=== PATIENT | female | born 1955 | race Caucasian/White ===

== ENCOUNTER 2017-11-05 15:21 | Observation (INO) | payer OTHER ==
[~2017-11-05] VITALS: Ht 160 cm; Wt 72.7 kg
[2017-11-05] MEDS ORDERED: ASPIRIN 81 MG CHEW TAB PO ONE ×2 (15:45→20:00)
[2017-11-05 16:39] LABS: BASOPHILS # (AUTO) 0.1 (0.0-0.1); BASOPHILS % 0.8 % (0.0-1.0); EOSINOPHILS # (AUTO) 0.2 (0.0-0.4); EOSINOPHILS % 2.6 % (0.0-6.0); HEMATOCRIT 43.1 % (34.2-44.1); HEMOGLOBIN 14.2 g/dL (12.0-16.0); LYMPHOCYTES # (AUTO) 2.6 (1.0-3.2); LYMPHOCYTES % 36.4 % (18.0-39.1); MEAN CORPUSCULAR HEMOGLOBIN 30.6 pg (28-32); MEAN CORPUSCULAR HGB CONC 32.9 g/dL (31-35); MEAN CORPUSCULAR VOLUME 92.9 fL (81-99); MONOCYTES # (AUTO) 0.5 (0.2-0.8); MONOCYTES % 7.5 % (4.4-11.3); NEUTROPHILS # (AUTO) 3.8 (2.1-6.9); NEUTROPHILS % 52.4 % (38.7-80.0); PLATELET COUNT 268 x10e3/uL (140-360); RED BLOOD COUNT 4.64 x10e6/uL (3.6-5.1); RED CELL DISTRIBUTION WIDTH 13.1 % (11.7-14.4)
[2017-11-05 16:48] LABS: INR 1.05; PROTHROMBIN TIME 12.9 seconds (11.9-14.5)
[2017-11-05 16:49] LABS: PARTIAL THROMBOPLASTIN TIME 28.8 seconds (23.8-35.5)
[2017-11-05 16:58] LABS: ALBUMIN 3.8 g/dL (3.5-5.0); ALBUMIN/GLOBULIN RATIO 1.1 (0.8-2.0); ANION GAP 13.9 mmol/L (8-16); CALCIUM 9.5 mg/dL (8.4-10.2); CREATININE, SERUM 0.95 mg/dL (0.57-1.11); POTASSIUM 3.9 mmol/L (3.5-5.1)
[2017-11-05 17:06] LABS: CREATINE KINASE MB 0.9 ng/mL (0-5.0)
--- NOTE | 2017-11-05 17:44 | Diagnostic Imaging Report ---
EXAMINATION: PA and lateral views of the chest. COMPARISON: None CLINICAL HISTORY: Chest pain DISCUSSION: Lines/tubes: None. Lungs: The lungs are well inflated and clear. There is no evidence of pneumonia or pulmonary edema. Pleura: There is no pleural effusion or pneumothorax. Heart and mediastinum: The cardiomediastinal silhouette is normal. Bones and soft tissues: No acute bony abnormalities. Degenerative changes in the thoracic spine IMPRESSION: No acute cardiopulmonary abnormalities. Signed by: Dr. Johnnie Rosen M.D. on 11/05/2017 5:41 PM
[2017-11-05] MEDS ORDERED: SIMVASTATIN20 MG PO (18:06)
[2017-11-05] MEDS ORDERED: PROPRANOLOL HCL10 MG PO (18:06)
[2017-11-05] MEDS ORDERED: MORPHINE SULFATE 2 MG/ML SYR IV PRN (20:00)
[2017-11-05 20:30] LABS: CLARITY,URINE CLEAR (CLEAR); COLOR,URINE YELLOW (YELLOW); KETONES,URINE NEGATIVE (NEGATIVE); LEUKOCYTE ESTERASE ,URINE NEGATIVE (NEGATIVE); NITRITE,URINE NEGATIVE (NEGATIVE); PROTEIN,URINE DIPSTICK NEGATIVE (NEGATIVE)
[2017-11-05 20:31] LABS: BILIRUBIN,URINE NEGATIVE (NEGATIVE); URINE UROBILINOGEN 0.2 mg/dL (0.2 - 1)
[2017-11-05 20:39] LABS: EPITHELIAL CELLS,URINE FEW /LPF
[2017-11-06] VITALS (10 sets, daily range): BP systolic 101–124; BP diastolic 53–64
[2017-11-06 01:17] LABS: CREATINE KINASE MB 0.7 ng/mL (0-5.0)
[2017-11-06] MEDS ORDERED: NITROFURANTOIN100 M1 PO (04:30)
[2017-11-06 05:47] LABS: CREATINE KINASE MB 0.5 ng/mL (0-5.0)
[2017-11-06] MEDS ORDERED: ASPIRIN 81 MG ENTERIC COATED PO SCH (09:00)
--- NOTE | 2017-11-06 09:46 | History and Physical ---
CHIEF COMPLAINT: Chest pain with radiation to the left jaw and left upper extremity. HISTORY: A 62-year-old female with recurrent chest pain that usually radiates to her back. The patient came in this time because the chest pain is different. It is different in intensity, quality and also with radiating pain. Patient is stable. Dr. Harmon was consulted. The patient is pending for a stress test. PAST MEDICAL HISTORY: Recurrent urine tract infections, hypertension and dyslipidemia. PAST SURGICAL HISTORY: Noncontributory. SOCIAL HISTORY: The patient does not smoke or use alcohol. No recreational drugs. ALLERGIES: LEVAQUIN AND SULFA. HOME MEDICATIONS: List is reviewed. REVIEW OF SYSTEMS: Atypical chest pain, now pressure like without any radiation. PHYSICAL EXAMINATION VITAL SIGNS: Temperature is 98, blood pressure 110/62, pulse rate 80, respirations 18. GENERAL: The patient is not in acute distress. HEENT: Normocephalic, atraumatic and anicteric. NECK: Supple grossly. PULMONARY: Diminished breath sounds. CARDIOVASCULAR: S1 and S2. Regular rate and rhythm. ABDOMEN: Soft. Positive bowel sounds. Grossly nontender. No distention. EXTREMITIES: No gross cyanosis or edema. NEUROLOGIC: No focal deficit. LABORATORY: Sodium is 139, potassium 3.9, chloride 101, bicarb 28, BUN 16, creatinine 0.9, glucose 90. WBC 7.2, hemoglobin 14, hematocrit 43, and platelets are 268,000. Cardiac enzymes negative. EKG is sinus bradycardia with short LA interval, but otherwise no ST-T wave changes. IMPRESSION 1. Chest pain. 2. Baseline hypertension. 3. Dyslipidemia. PLAN: Echocardiogram showed ejection fraction of 60%. The patient will have a stress test today. If the stress test is negative, the patient may be discharged to follow with her family doctor for any further workup based on these symptoms. Job#: [id number] CHANTAL
[2017-11-06] MEDS ORDERED: SODIUM CHLORIDE 0.9% 1000ML 1,000 ML IV SCH (10:10)
[2017-11-06] MEDS ORDERED: LIDOCAINE HCL 2% LOCAL 20 ML VIAL ONE (10:29)
[2017-11-06] MEDS ORDERED: HEPARIN SOD/SOD CHLORIDE 2,000 ML ONE (10:30)
[2017-11-06] MEDS ORDERED: CLOPIDOGREL BISULFATE 75 MG TAB PO NR (10:30)
[2017-11-06] MEDS ORDERED: IOPAMIDOL 370 MG/ML 200 ML INFUS..BTL INJ ONE (10:30)
--- NOTE | 2017-11-06 10:41 | Cardiology Report ---
DATE OF STUDY: CARDIAC STRESS TEST TECHNICAL DETAILS: The protocol is Reuben with 85% target heart rate at 136 per minute. RESULTS 1. Patient exercised for 5 minutes and 25 seconds. 2. Stress test stopped at that time because of chest pain and significant EKG changes. It was sub-max at the heart rate of 128 per minute. 3. Blood pressure increased from 120/80 to 180/80. 4. Significant EKG changes. 5. Severe chest pain. 6. EKG changes lasted event in recovery period for almost 4 minutes. IMPRESSION: Strongly positive submaximum stress test with typical symptoms and EKG changes. COMPLICATIONS: None. Job#: [id number] SHAINA
--- NOTE | 2017-11-06 10:43 | Consultation ---
DATE OF CONSULTATION: November 06, 2017 CARDIAC CONSULTATION HISTORY: This is a 62-year-old lady who is known with hypertension, migraine and hyperlipidemia. Patient came to this institution complaining of chest pain. The symptoms were going on for the last few weeks. She was under distress. They are sharp, but sometimes they are pressure in nature. Yesterday, she had one of these episodes where she was stressed out and it radiated to her neck. Her colleague advised her to go to the emergency room because of this type of pain and going to the neck and to her arm. She came to the ER. She was ruled out for myocardial infarction by cardiac enzymes and cardiac consultation was obtained. Patient denied having any recent travel. There is no leg swelling. There is no pleuritic chest pain. The patient does have moderate shortness of breath on exertion, easy fatigability, but no orthopnea. No paroxysmal nocturnal dyspnea. No palpitations. No syncope or presyncope. REVIEW OF SYSTEMS: Was done to all systems and will be summarized for clarity. CARDIAC: As per above. PULMONARY: No cough. No hemoptysis. GI: No hematemesis. No melena. Consistent with irritable bowel syndrome like symptoms and with tendency of more constipation. : No hematuria. No dysuria. NEUROMUSCULAR: Nonspecific aches. The patient does have a history of migraine. Latest episode was on Friday. HEMATOLOGY: No bruising or bleeding. SOCIAL HISTORY: . Nonsmoker and not an alcohol drinker. She is retired. She is again back to part-time working. FAMILY HISTORY: Father at age 78 with complication of myocardial infarction. Mother at the age of 85, questionable cause. Three siblings, 2 brothers and 1 sister that are all healthy. No children. HOME MEDICATIONS 1. Inderal 10 mg twice a day. 2. Simvastatin 20 mg a day. 3. Magnesium oxide. 4. Probiotic. 5. Other supplements. ALLERGIES: LEVAQUIN MAKES THE PATIENT JITTERY. SULFA CAUSING HIVES. PAST MEDICAL HISTORY 1. Hypertension. 2. Migraines. 3. Hypercholesterolemia. 4. Left breast lumpectomy. 5. Hysterectomy. 6. Cholecystectomy. 7. Irritable bowel syndrome. PHYSICAL EXAMINATION VITALS: Height of 5 feet 3 inches, weight 158 pounds, blood pressure 130/70, heart rate of 60, respiratory rate 18, temperature of 97 Fahrenheit. HEENT: Pupils are equal and reactive. NECK: No elevation of jugular venous pulsation. No bruit. CHEST: Clear to auscultation and percussion. HEART: PMI in 1st left intercostal space. Normal 1st and 2nd heart sounds. ABDOMEN: Soft with good bowel sounds. EXTREMITIES: No cyanosis. No clubbing. No edema. NEUROLOGIC: Awake, alert and oriented. No motor or sensory deficits. LAB DATA: Sodium 139, potassium 3.9, BUN of 16, creatinine of 1. White blood cells count of 7.1, hemoglobin 14.2, hematocrit of 43%, and platelet count of 268,000. Transaminases are normal. Lipid profile showed triglycerides of 97, cholesterol 168, HDL of 42, LDL of 107. EKG showing normal sinus rhythm. IMPRESSION AND PLAN 1. Chest pain with typical and atypical characteristics. 2. Hypertension. 3. Migraines. 4. Hypercholesterolemia. 5. Irritable bowel syndrome. Cardiac botello, since the patient already had 2 sets of cardiac enzymes that are negative, will schedule her for cardiac stress test. Options of workup are discussed and explained. Differential diagnosis are discussed. Pending on the results of the stress test and the patient's clinical course, further steps to be done. Job#: [id number] CHANTAL
[2017-11-06] MEDS ORDERED: MIDAZOLAM HCL 2 MG/2 ML VIAL ONE (10:54)
[2017-11-06] MEDS ORDERED: BIVALIRUDIN 250 MG/VIAL IV ONE (10:55)
[2017-11-06] MEDS ORDERED: FENTANYL CITRATE/PF 100MCG/2 ML INJ ONE (10:55)
[2017-11-06] MEDS ORDERED: SODIUM CHLORIDE 0.9% 50ML 0 ML ONE (10:56)
[2017-11-06] MEDS ORDERED: HYDROCODONE/APAP 5MG-325MG TAB PO PRN (12:00)
[2017-11-06] MEDS ORDERED: ACETAMINOPHEN 325 MG TAB PO PRN (12:00)
[2017-11-06] MEDS ORDERED: ONDANSETRON HCL INJ 2 MG/ML VIAL IV PRN (12:00)
--- NOTE | 2017-11-06 13:42 | Operative Report ---
DATE OF PROCEDURE: November 06, 2017 TITLE OF PROCEDURE: Left cardiac catheterization. INDICATIONS: Chest pain and angina. Patient had strongly positive stress test with patient developing severe chest pain and ST segment changes in multiple leads are 12.4. Test stopped before reaching the target heart rate. TECHNICAL DETAILS: After the usual sterile preparation and draping procedure, intravenous Versed and fentanyl given for sedation and local Xylocaine for anesthesia. A 4-Estonian sheath established in place. A 3DRC catheter to engage the right coronary artery. Pigtail for hemodynamic measurement and left ventriculogram. At the end of the procedure, sheath was removed. Hemostasis achieved manually. No complication and no blood loss. RESULTS 1. Coronary angiogram. 1. Left main free of disease. 2. LAD 20% ostial lesion, giving large diagonal and good size. LAD wrapping around the apex. 3. Circumflex coronary artery, dominant artery giving very large branching OM with 20% lesion, giving the circumflex PDA with 30% very distally. 4. Right coronary artery, very small, nondominant. 1. Hemodynamics: Aortic pressure 120/80. LV pressure 120/20. 2. Left ventriculogram in the right anterior oblique view showed normal size ventricle with ejection fraction of 60% to 70%. IMPRESSION 1. Minimal plaquing. 2. Dominant left circumflex system. 3. Left ventricular ejection fraction of 60% to 70%. COMPLICATIONS: None BLOOD LOSS: None Job#: [id number] [id number]
[2017-11-06] MEDS: SODIUM CHLORIDE 0.9% 1000ML 1,000 ML IV SCH ×2 (14:40→23:52)
[2017-11-06] MEDS ORDERED: METOPROLOL TARTRATE 25 MG TAB PO SCH (17:00)
[2017-11-06] MEDS ORDERED: ZOLPIDEM TARTRATE 5 MG TAB PO PRN (21:00)
[2017-11-07 00:55] VITALS: BP 129/68
[2017-11-07 05:10] VITALS: BP 139/75
[2017-11-07 05:22] LABS: BASOPHILS # (AUTO) 0.1 (0.0-0.1); BASOPHILS % 0.6 % (0.0-1.0); EOSINOPHILS # (AUTO) 0.3 (0.0-0.4); EOSINOPHILS % 3.3 % (0.0-6.0); HEMATOCRIT 39.1 % (34.2-44.1); LYMPHOCYTES # (AUTO) 2.9 (1.0-3.2); LYMPHOCYTES % 36.5 % (18.0-39.1); MEAN CORPUSCULAR HEMOGLOBIN 30.7 pg (28-32); MEAN CORPUSCULAR HGB CONC 33.2 g/dL (31-35); MEAN CORPUSCULAR VOLUME 92.2 fL (81-99); MONOCYTES # (AUTO) 0.6 (0.2-0.8); MONOCYTES % 8.2 % (4.4-11.3); NEUTROPHILS % 51.1 % (38.7-80.0); PLATELET COUNT 206 x10e3/uL (140-360); RED BLOOD COUNT 4.24 x10e6/uL (3.6-5.1)
[2017-11-07 05:36] LABS: ALANINE AMINOTRANSFERASE 29 IU/L (0-55); ALBUMIN 3.3 g/dL (3.5-5.0); ALBUMIN/GLOBULIN RATIO 1.1 (0.8-2.0); ALKALINE PHOSPHATASE 58 IU/L (40-150); ANION GAP 12.5 mmol/L (8-16); BLOOD UREA NITROGEN 15 mg/dL (7-26); BUN/CREATININE RATIO 19 (6-25); CARBON DIOXIDE 25 mmol/L (22-29); CHLORIDE 112 mmol/L (98-107); CREATININE, SERUM 0.79 mg/dL (0.57-1.11); EST GLOMERULAR FILTRATION RATE > 60 ML/MIN (60-); GLUCOSE 106 mg/dL (74-118); POTASSIUM 4.5 mmol/L (3.5-5.1); SODIUM 145 mmol/L (136-145)
[2017-11-07 07:30] VITALS: BP 139/75
[2017-11-07 08:00] VITALS: BP 180/83
[2017-11-07 09:15] VITALS: BP 150/70
[2017-11-07] MEDS ORDERED: CLONIDINE HCL 0.1 MG TAB PO PRN (09:15)
[2017-11-07] MEDS ORDERED: ASPIRIN 81 MG ENTERIC COATED PO SCH (09:30)
[2017-11-07] MEDS ORDERED: AMLODIPINE BESYLATE 5 MG TAB PO SCH (09:30)
[2017-11-07 12:36] VITALS: BP 131/69
[2017-11-07] MEDS ORDERED: NORVASC5 MG PO (14:40)
--- NOTE | 2017-11-07 16:53 | Discharge Summary ---
FINAL DIAGNOSES: 1. Chest pain. 2. Status post cardiac catheterization negative. Ejection fraction of approximately 60%. She has a small nonischemic vessel and also only 20% stenosis of most coronary arteries. No intervention. SUMMARY: Patient is a 62-year-old female who came in with some chest pain, but she does have hypertensive urgency. Patient was placed on Norvasc. She responded well. Blood pressure systolic 131, diastolic 69. She underwent a stress test and subsequent cardiac catheterization. No significant blockage. 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 Patient placed on Norvasc. She responded, she will go home with Norvasc 5 mg daily. The patient is stable, discharged home. Continue with other home medications. The patient to follow up with her family doctor within a week. Job#: [id number] EV
[2017-11-07] MEDS ORDERED: SIMVASTATIN 20 MG TAB PO SCH (21:00)
== END 2017-11-07 14:55 | disposition home or self-care (01) ==
LOC: ER 15:21 → CATH LAB V 20:04 → UNDOADMOB 20:13 → ERHOLD 20:13 → ER 11-06 10:45 → UNDOADMOB 11-06 11:42 → CATH LAB V 11-06 11:42 → IMCU 11-06 14:18 → UNDODISOB 11-07 14:55
PROVIDERS: ADMIT Internal Medicine; ATTEND Internal Medicine
DX: I25.10 Atherosclerotic heart disease of native coronary artery without angina pectoris (principal); I34.0 Nonrheumatic mitral (valve) insufficiency; I07.1 Rheumatic tricuspid insufficiency; I10 Essential (primary) hypertension; E78.5 Hyperlipidemia, unspecified; Z88.1 Allergy status to other antibiotic agents; Z88.2 Allergy status to sulfonamides; Z87.440 Personal history of urinary (tract) infections; K58.9 Irritable bowel syndrome, unspecified; E78.00 Pure hypercholesterolemia, unspecified; G43.909 Migraine, unspecified, not intractable, without status migrainosus; I16.0 Hypertensive urgency; Z85.3 Personal history of malignant neoplasm of breast; Z82.49 Family history of ischemic heart disease and other diseases of the circulatory system
CPT/HCPCS: 36415 ×3; 71046; 80053 ×2; 80061; 81001; 82550 ×2; 82553 ×2; 84484 ×2; 85025 ×2; 85379; 85610; 85730; 93005; 93017; 93306; 93458; 99284; C1766; G0378 ×3; J2001; J2250; J2405; J7030; Q9967; J0583